=== PATIENT | male | born 1955 | race Caucasian/White ===

== ENCOUNTER 2016-10-24 22:33 | Emergency (ER) | payer MEDICARE ==
[2016-10-24 22:52] VITALS: BP 119/75; PULSE 60; RESP 16; TEMP 98.3
[2016-10-24] MEDS ORDERED: TOBRAMYCIN 0.3% OPHTH DROPS 5 ML BTL RIGHT EYE STA (23:28)
[2016-10-24] MEDS ORDERED: KETOTIFEN 0.025% OPHTH DROPS 5 ML BTL RIGHT EYE STA (23:28)
--- NOTE | 2016-10-24 23:36 | ED ---
ENT HPI - General Chief complaint: ENT Stated complaint: eye problems Time Seen by Provider: 10/24/16 23:10 Source: patient, RN notes reviewed Mode of arrival: ambulatory Limitations: no limitations - History of Present Illness Initial comments: 61-year-old male presents emergency Department chief complaint right eye irritation. Patient states that he was outside cutting the grass came and started rubbing his eye and noticed some irritation. Patient states that his eye seems to be swollen and he feels that his cornea may be dislodged though he states he has no visual changes. Denies any blurred vision, photophobia. Patient denies any fevers or chills. Patient does not wear any glasses or contacts. Patient states his tetanus is up-to-date. - Related Data Home Medications Medication Instructions Recorded Confirmed Allergy Medication 1 tab PO DAILY 10/24/16 10/24/16 Simvastatin (Unknown Dose) 0.5 tab PO DAILY 10/24/16 10/24/16 Unknown Depression Medication 1 tab PO DAILY 10/24/16 10/24/16 Previous Rx's Medication Instructions Recorded Tobramycin [Tobrex 0.3% Ophth Soln] 1 drop RIGHT EYE Q4HR #5 ml 10/24/16 Allergies Allergy/AdvReac Type Severity Reaction Status Date / Time grass pollen Allergy Unknown Verified 10/24/16 23:11 ragweed pollen Allergy Unknown Verified 10/24/16 23:11 Review of Systems ROS Statement: Those systems with pertinent positive or pertinent negative responses have been documented in the HPI. ROS Other: All systems not noted in ROS Statement are negative. Past Medical History Past Medical History: No Reported History History of Any Multi-Drug Resistant Organisms: None Reported Past Surgical History: No Surgical Hx Reported Past Psychological History: No Psychological Hx Reported Smoking Status: Current every day smoker Past Alcohol Use History: None Reported Past Drug Use History: None Reported General Exam Limitations: no limitations General appearance: alert, in no apparent distress Head exam: Present: atraumatic, normocephalic, normal inspection Eye exam: Present: PERRL, EOMI, conjunctival injection (Moderate right). Absent : normal appearance (Ecchymosis noted of the right thigh), scleral icterus, periorbital swelling, periorbital tenderness Pupils: Present: normal accommodation, other (No uptake with Wood's lamp and fluorescein dye) Expanded Anterior chamber: Normal Inspection: Bilateral IOP (R) in mmH IOP (L) in mmH IOP measured with: Tonopen ENT exam: Present: normal exam, normal oropharynx, mucous membranes moist Neck exam: Present: normal inspection. Absent: tenderness, meningismus, lymphadenopathy Respiratory exam: Present: normal lung sounds bilaterally. Absent: respiratory distress, wheezes, rales, rhonchi, stridor Cardiovascular Exam: Present: regular rate, normal rhythm, normal heart sounds. Absent: systolic murmur, diastolic murmur, rubs, gallop, clicks Course Vital Signs 10/24/16 22:48 Temperature 98.3 F Pulse Rate 60 Respiratory 16 Rate Blood Pressure 119/75 O2 Sat by Pulse 96 Oximetry Medical Decision Making - Medical Decision Making 61-year-old male present emergency from for right eye irritation. Patient has chemosis, conjunctivitis. Patient was placed on antihistamine drops and antibiotic drops at this time. This most likely is related to ALLERGIES and irritation. Patient recovered with antibiotic eyedrops secondary to him rubbing his eye. Disposition Clinical Impression: Conjunctivitis, right eye, Chemosis of right conjunctiva Disposition: HOME SELF-CARE Condition: Stable Instructions: Ketotifen (Into the eye), Conjunctivitis (ED) Additional Instructions: Please return to the Emergency Department if symptoms worsen or any other concerns. Prescriptions: Tobramycin [Tobrex 0.3% Ophth Soln] 1 drop RIGHT EYE Q4HR #5 ml Referrals: Nonstaff,Physician [Primary Care Provider] - 1-2 days Blaire Temple MD [STAFF PHYSICIAN] - 1-2 days Time of Disposition: 23:34
== END 2016-10-25 00:27 | disposition home or self-care (01) ==
LOC: EC 22:33
DX: H11.421 Conjunctival edema, right eye (principal); F17.200 Nicotine dependence, unspecified, uncomplicated; Z91.048 Other nonmedicinal substance allergy status; Z79.899 Other long term (current) drug therapy
CPT/HCPCS: 99283